=== PATIENT | female | born 1960 | race Caucasian/White ===

== ENCOUNTER 2017-09-18 10:52 | Emergency (ER) | payer MEDICARE, OTHER ==
[~2017-09-18] VITALS: Ht 177.8 cm; Wt 105.6 kg
[~2017-09-18 10:52] MED LIST: ACYC400T2 PO; ALBU2.5V3 NEB; CYCL-319 PO; DIVA125T2 PO; GABA300C16 PO; HYDR-3498 PO; HYDR25TA6 PO; IBUP-1542 PO; LANT3I SC; LEVA15HF6 INH; LISI40TA9 PO; MELO-210 PO; MTF1000T PO; PANT40TA4 PO; PRAZ2CAP2 PO; SERT-165 PO; TEMA30CA PO; TIOT18CA INHALATION; TRAZ50TA18 PO
[2017-09-18 11:00] VITALS: Ht 177.8 cm; Wt 105.6 kg
[2017-09-18] MEDS ORDERED: FUROSEMIDE 20 MG TAB PO ONE (12:00)
--- NOTE | 2017-09-18 12:19 | RADRPT ---
PROCEDURE: XR Chest. CLINICAL INDICATION: Shortness of breath TECHNIQUE: Single frontal view of the chest was obtained COMPARISON: CR CHEST 10/10/2013 FINDINGS: The heart and mediastinum are within normal limits. The lungs are clear. There is no pleural effusion or pneumothorax. RPTAT: AA IMPRESSION: No acute disease. .Smooth Caldera MD, MD Date Time Electronically viewed and signed by .Smooth Caldera MD, MD on 09/18/2017 12:19 .S/
[2017-09-18] MEDS ORDERED: FURO-109 PO (13:01)
--- NOTE | 2017-09-18 13:03 | ERD ---
ER Documentation Chief Complaint Chief Complaint complains of bilateral leg pain x 3 days HPI Patient is a 56-year-old female with COPD, hypertension, and diabetes who presents with bilateral lower extremity swelling. The symptoms started 2 days ago. The patient says "I always have sharp chest pain shortness of breath". She said this is chronic for her. She is speaking in full sentences. Her primary doctor is Dr. Lyons. ROS All systems reviewed and are negative except as per history of present illness. Medications Home Meds Active Scripts Furosemide* (Lasix*) 40 Mg Tablet, 40 MG PO DAILY, #20 TAB Prov:WILLIAM ARRIETA MD 09/18/17 Hydrocodone Bit-Acetaminophen* ([place]*) 5-325 Mg Tab, 1 TAB PO Q6 Y for PAIN, # 20 TAB Prov:EDOUARD BOYER NP 11/21/15 Ibuprofen* (Motrin*) 600 Mg Tab, 600 MG PO Q6H Y for PAIN AND OR ELEVATED TEMP, #30 TAB Prov:EDOUARD BOYER PATIENT ACCESS REPRESENTATIVE 11/21/15 Reported Medications Cyclobenzaprine Hcl* (Cyclobenzaprine Hcl*) 10 Mg Tablet, 10 MG PO BID Y for MUSCLE SPASMS, #60 TAB 11/20/15 Albuterol Sulfate* (Albuterol Sulfate* Neb) 0.083%-3 Ml Neb, 1.25 MG NEB Q3H Y for WHEEZING AND SOB, #30 VIAL 11/20/15 Trazodone Hcl* (Desyrel*) 50 Mg Tablet, 50 MG PO BID, #60 TAB 11/20/15 Sertraline Hcl* (Sertraline Hcl*) 100 Mg Tablet, 200 MG PO DAILY, #60 TAB 11/20/15 Divalproex Sodium* (Divalproex Sodium*) 125 Mg Tablet.dr, 125 MG PO TID, #90 TAB 11/20/15 Temazepam* (Temazepam*) 30 Mg Capsule, 30 MG PO HS Y for INSOMNIA, CAP 11/20/15 Prazosin Hcl* (Prazosin Hcl*) 2 Mg Capsule, 2 MG PO BID, CAP 11/20/15 Levalbuterol* (Xopenex* HFA) 15 Gm Inha, 2 PUFFS INH Q4H Y for WHEEZING AND SOB , INHALER 11/20/15 Tiotropium [place]* (Spiriva*) 18 Mcg Cap.w.dev, 1 CAP INHALATION DAILY, #30 CAP 11/20/15 Metformin* (Glucophage*) 1,000 Mg Tablet, 1000 MG PO BID, #60 TAB 11/20/15 Meloxicam* (Mobic*) 15 Mg Tablet, 15 MG PO DAILY, #30 TAB 11/20/15 Pantoprazole* (Pantoprazole*) 40 Mg Tablet.dr, 40 MG PO DAILY, TAB 11/20/15 Acyclovir* (Acyclovir*) 400 Mg Tablet, 400 MG PO TID, TAB 11/20/15 Hydrochlorothiazide* (Hydrochlorothiazide*) 25 Mg Tab, 25 MG PO DAILY, #30 TAB 11/20/15 Lisinopril* (Lisinopril*) 40 Mg Tablet, 40 MG PO DAILY, #30 TAB 11/20/15 Gabapentin* (Gabapentin*) 300 Mg Capsule, 900 MG PO TID, CAP 05/02/15 Insulin Glargine* (Lantus*) 100 Unit/Ml Soln, 40 UNIT SC HS, EA 05/02/15 Allergies Allergies: Coded Allergies: ziprasidone (Verified Allergy, Severe, SOB, 08/12/15) PMhx/Soc History of Surgery: Yes (C/SECTION X 4, TONSILLECTOMY, CHOLECYSTECTOMY) Anesthesia Reaction: No Hx Neurological Disorder: Yes (noah carpal tunnel) Hx Respiratory Disorders: Yes (COPD) Hx Cardiac Disorders: Yes (HTN) Hx Psychiatric Problems: Yes (DEPRESSION) Hx Miscellaneous Medical Probl: Yes (IDDM, SLEEP APNEA) Hx Alcohol Use: Yes (OCCASIONAL) Hx Substance Use: Yes (1998) Hx Tobacco Use: Yes Smoking Status: Current every day smoker FmHx Family History: diabetes Physical Exam Vitals Vital Signs Date Time Temp Pulse Resp B/P Pulse Ox O2 Delivery O2 Flow Rate FiO2 09/18/17 13:30 98.6 84 18 137/75 99 09/18/17 11:00 99.0 107 20 121/69 99 Physical Exam Const: No acute distress Head: Atraumatic Eyes: Normal Conjunctiva ENT: Normal External Ears, Nose and Mouth. Neck: Full range of motion..~ No meningismus. Resp: Clear to auscultation bilaterally Cardio: Regular rate and rhythm, no murmurs Abd: Soft, non tender, non distended. Normal bowel sounds Skin: No petechiae or rashes Back: No midline or flank tenderness Ext: 1+ pitting edema bilaterally Neur: Awake and alert Psych: Normal Mood and Affect Results 24 hrs Current Medications Medications (Trade) Dose Ordered Sig/Norma Route PRN Reason Start Time Stop Time Status Last Admin Dose Admin Furosemide (Lasix) 40 mg ONCE ONCE PO 09/18/17 12:00 09/18/17 12:01 DC 09/18/17 12:04 Procedures/MDM EKG read by me: Rate/Rhythm: Regular rate and rhythm at a rate of 92 Intervals: Normal Impression: No evidence of ischemia or arrhythmia Chest x-ray negative per radiology. Smoking Cessation Therapy: Pt. was lectured for greater than 3 minutes on the health risks of continued smoking and the benefits of cessation. Patient is a 56-year-old female with COPD, hypertension, and diabetes who presents with bilateral lower extremity swelling. She has no trouble speaking or breathing at this time. Chest x-ray was negative for pulmonary edema, pneumonia, or pneumothorax. EKG shows no signs of ischemia. The patient was given Lasix by mouth and will be given a prescription for Lasix. She can return for any worsening symptoms. She should follow-up with her primary doctor within 24-48 hours. Departure Diagnosis: Primary Impression: Edema Edema type: unspecified Qualified Code: R60.9 - Edema, unspecified type Condition: Fair Patient Instructions: Peripheral Edema, Bilateral Additional Instructions: Call your primary care doctor TOMORROW for an appointment during the next 1-2 days.See the doctor sooner or return here if your condition worsens before your appointment time. WILLIAM ARRIETA MD Sep 18, 2017 13:02
[2017-09-18 13:30] VITALS: BP 137/75; PULSE 84; RESP 18; TEMP 98.6
== END 2017-09-18 13:33 | disposition home or self-care (01) ==
LOC: E/R 10:52
DX: R60.0 Localized edema (principal); I10 Essential (primary) hypertension; J44.9 Chronic obstructive pulmonary disease, unspecified; E11.9 Type 2 diabetes mellitus without complications; F17.210 Nicotine dependence, cigarettes, uncomplicated; Z79.84 Long term (current) use of oral hypoglycemic drugs; Z79.4 Long term (current) use of insulin
CPT/HCPCS: 71010; 93005

== ENCOUNTER 2018-01-06 11:05 | Emergency (ER) | END 2018-01-06 14:48 | disposition home or self-care (01) ==

== ENCOUNTER 2018-05-03 18:23 | Emergency (ER) | END 2018-05-03 21:45 | disposition left against medical advice (07) ==

== ENCOUNTER 2019-06-28 18:46 | Inpatient (IN) | payer MEDICARE, OTHER ==
[~2019-06-28] VITALS: Ht 162.6 cm; Wt 102.7 kg
[~2019-06-28 18:46] MED LIST changes: +ALBU18HF ORAL; +ALBU8.5H8 INH; +AMOX1TAB10 PO; +AZIT250T PO; +AZIT250T13 PO; +BENZ-6 PO; -CYCL-319 PO; +CYCL10TA7 PO; +DIVA125T PO; -DIVA125T2 PO; +DIVA125T31 PO; +DULA0.75 SUBCUTANE; +FLUT16SP17 NASAL; +FLUT1BLS ORAL; +FURO-109 PO; +HALO5TAB23 ORAL; +IBUP-1545 PO; +INSU100I27 SUBCUTANE; +LISI40TA3 PO; -LISI40TA9 PO; +LYRI200 PO; -MELO-210 PO; +MELO15TA30 PO; +METF100010 ORAL; +PANT40TA3 PO; +PRED20TA PO; +RANI300T ORAL; +SERT100T PO; +TRA50 PO; +TRAM50TA2 PO; +TRAZ-149 ORAL; -TRAZ50TA18 PO; +UMEC62.5 IH; +VALB80CA ORAL
[2019-06-28 18:51] VITALS: Ht 162.6 cm; Wt 102.7 kg
[2019-06-28] MEDS ORDERED: SOD CHLORIDE 0.9% 100 ML ONE (20:05)
[2019-06-28] MEDS ORDERED: IOHEXOL 300MG/ML 150 ML BTL ONE (20:05)
[2019-06-28] MEDS ORDERED: SODIUM CHLORIDE 0.9% 1L BAG IV* STA (20:50)
[2019-06-28] MEDS ORDERED: PIPER-TAZO 3.375 GM IV (PMX) 100 ML IVPB STA (20:50)
[2019-06-28] MEDS ORDERED: VANCOMYCIN 1 GM (PMX) 250 ML IVPB STA (20:50)
[2019-06-28] MEDS ORDERED: KETOROLAC 15 MG INJ IV STA (21:22)
[2019-06-28] MEDS ORDERED: ACETAMINOPHEN 325 MG TAB PO PRN (21:30)
[2019-06-28] MEDS ORDERED: NACL 0.9% 3 ML SYG IV SCH (21:30)
[2019-06-28] MEDS ORDERED: KETOROLAC 30 MG INJ IV PRN (21:30)
[2019-06-28] MEDS ORDERED: ONDANSETRON 4 MG INJ IV PRN ×2 (21:30)
[2019-06-28] MEDS ORDERED: DEXAMETHASONE 10 MG/ML 1 ML INJ IV ONE (21:30)
[2019-06-28] MEDS ORDERED: ALBUTEROL/IPRATROPIUM (NEB) 3 ML AMP HHN PRN (21:30)
[2019-06-28] MEDS ORDERED: FUROSEMIDE 20 MG INJ IV ONE (21:30)
[2019-06-29] MEDS ORDERED: VANCOMYCIN 1 GM 250 ML IVPB SCH (01:00)
[2019-06-29] MEDS: PIPER-TAZO 3.375 GM IV (PMX) 100 ML IVPB SCH ×2 (03:00→08:56)
[2019-06-29] MEDS ORDERED: VANCOMYCIN IV PER PHARMACY XX SCH (09:00)
[2019-06-29 10:06] VITALS: BP 156/85; PULSE 74; RESP 20
[2019-06-29] MEDS ORDERED: AMPICILLIN/SULB 3 GM/NS (PMX) 100 ML IVPB SCH (12:00)
== END 2019-06-29 12:15 | disposition left against medical advice (07) | DRG 153 ==
LOC: E/R 18:46 → PP2 21:08 → EDBEDREQSVC 06-29 08:00
PROVIDERS: ADMIT Internal Medicine; ATTEND Internal Medicine
DX: J03.90 Acute tonsillitis, unspecified (principal); Z68.41 Body mass index [BMI] 40.0-44.9, adult; E11.9 Type 2 diabetes mellitus without complications; I10 Essential (primary) hypertension; J44.9 Chronic obstructive pulmonary disease, unspecified; E66.9 Obesity, unspecified; Z79.4 Long term (current) use of insulin; G47.33 Obstructive sleep apnea (adult) (pediatric); F17.210 Nicotine dependence, cigarettes, uncomplicated
CPT/HCPCS: 70360; 70491; 71045; 80053; 82962; 83605; 83735; 85025; 93005; 96374; J0295; J2543; J3370; J7030; Q9967

== ENCOUNTER 2019-06-30 19:19 | Emergency (ER) | payer MEDICARE, OTHER ==
[~2019-06-30] VITALS: Wt 102.1 kg
[~2019-06-30 19:19] MED LIST changes: -ACYC400T2 PO; -ALBU2.5V3 NEB; -ALBU8.5H8 INH; -AZIT250T PO; -BENZ-6 PO; -DIVA125T31 PO; -FURO-109 PO; -GABA300C16 PO; -HYDR-3498 PO; -HYDR25TA6 PO; -IBUP-1542 PO; -LANT3I SC; -LEVA15HF6 INH; -MELO15TA30 PO; -MTF1000T PO; -PANT40TA4 PO; -PRED20TA PO; -SERT-165 PO; -TEMA30CA PO; -TRA50 PO; -TRAM50TA2 PO
[2019-06-30] MEDS ORDERED: CEFTRIAXONE 1 GM/50 ML (PMX) 50 ML IVPB STA (20:43)
[2019-06-30] MEDS ORDERED: ALBUTEROL 0.5% (NEB) 2.5 MG/0.5 ML AMP INH STA (20:43)
[2019-06-30] MEDS ORDERED: AZITHROMYCIN 500MG/NS (PMX) 250 ML IV STA (20:43)
[2019-06-30] MEDS ORDERED: ALBUTEROL 0.083% (NEB) 2.5 MG/3 ML AMP HHN STA (22:25)
[2019-07-01 00:15] VITALS: BP 150/82; PULSE 89; RESP 16
== END 2019-07-01 00:15 | disposition home or self-care (01) ==
LOC: E/R 19:19
DX: J44.1 Chronic obstructive pulmonary disease with (acute) exacerbation (principal); E11.9 Type 2 diabetes mellitus without complications; Z79.4 Long term (current) use of insulin; Z87.891 Personal history of nicotine dependence
CPT/HCPCS: 36600; 71045; 80053; 82803; 85025; 94664; 96374; 96375; 99284; J0456; J0696